=== PATIENT | male | born 1955 | race Caucasian/White ===

== ENCOUNTER 2019-03-15 13:23 | Day surgery (SDC) | payer OTHER, MEDICAID, SELFPAY ==
--- NOTE | 2019-03-15 | PATH_ITS ---
[facility] Accession Number: [id number] . 01 Material submitted: . PART A: cecum - CECUM POLYP PART B: colon - COLON POLYP AT 70CM . 02 Diagnosis: A. Cecum, Polyp: Tubular adenoma. . B. Colon at 70 cm, Polyp: Colonic mucosa with no diagnostic abnormality, consistent with polypoid redundancy. Negative for serrated lesion, dysplasia or malignancy. MRV/03/17/2019 . 02 Electronically signed: . Rajiv Ceballos MD, PhD, Pathologist NPI- [id number] . 01 Gross description: . Part A: CECUM POLYP: Received in formalin are multiple fragment(s) of may, soft tissue measuring 1.4 x 0.5 x 0.2 cm in aggregate submitted entirely in 1 cassette(s) Part B: COLON POLYP AT 70CM: Received in formalin are 2 fragment(s) of may, soft tissue measuring 0.5 x 0.3 x 0.2 cm to 0.3 x 0.3 x 0.1 cm submitted entirely in 1 cassette(s) /CKI /CKI . 02 Pathologist provided ICD-10: D12.0, K63.5 . 02 CPT . 607928, [id number] Specimen Comment: A duplicate report has been generated due to demographic updates. Performed at: 01 [facility] [address], [place], [place] [id number] MD Naveed Ribera MD Phone: [phone] Performed at: 02 [facility] [address] [place], [place] [id number] MD Rafia Jaime MD Phone: [phone]
[2019-03-15 15:20] VITALS: BP 137/79; PULSE 68; RESP 16; TEMP 36.6; O2SAT 99; BMI 27.6
[2019-03-15] MEDS: SODIUM CHLORIDE 0.9% 1,000 ML 200 ML IV (15:30)
--- NOTE | 2019-03-15 16:21 | PM.HP.1 ---
History of Present Illness Date Patient Seen: 03/15/19 Time Patient Seen: 16:00 Chief complaint: [id number] SCREENING COLONOSCOPY Narrative: Patient is gentleman who was confused about the time this check-in was post be here this morning but arrived this afternoon we are able to accommodate him to do a late colonoscopy. He has had polyps removed in the past and it has been 5 years since his last colonoscopy Patient History Social History household members: none Family & Social History Social History: household members none Review of Systems Review of Systems All systems reviewed & are unremarkable except as noted in HPI and below Neurologic Comments: Has migraine headaches at times takes medication as needed to control Exam Vital Signs (past 8 hours): - 03/15/19 15:20 Temperature 97.8 F Pulse Rate 68 Respiratory Rate 16 Blood Pressure 137/79 Pulse Oximetry 99 Oxygen Delivery Method Room Air Narrative Exam Narrative: Pleasant cooperative patient no apparent distress. Lungs are clear to auscultation. No rales or rhonchi. Heart regular rate and rhythm no murmur gallop. Abdomen is soft nontender without mass. No obvious hernias. Patient is alert and oriented x3. Assessment & Plan Assessment & Plan narrative: The patient for a screening colonoscopy. I have discussed the procedure with them. Risks of bleeding, perforation which would necessitate major operation, failure to find remove all lesions, the potential tattoo were all discussed. All questions were answered. They wished to proceed.
--- NOTE | 2019-03-15 16:23 | PM.PREOP ---
Pre-operative Note Interval Note History & Physical reviewed/Exam performed by Physician: Yes Changes to H&P: No ASA Class (for procedural sedation): I
[2019-03-15 17:20] VITALS: BP 103/65; PULSE 65; RESP 14; TEMP 36.9; O2SAT 98
[2019-03-15 17:26] VITALS: BP 107/70; PULSE 76; RESP 12; O2SAT 98
[2019-03-15 17:33] VITALS: BP 115/68; PULSE 66; RESP 12; O2SAT 99
[2019-03-15 17:38] VITALS: BP 117/73; PULSE 63; RESP 16; O2SAT 95
[2019-03-15 17:39] VITALS: BP 112/62; PULSE 60; RESP 13; TEMP 37.4; O2SAT 95
--- NOTE | 2019-03-15 17:48 | P.OP.ENDO_ITS ---
Operative Date/Time/Diagnoses Date of procedure: 03/15/19 Time of procedure: 17:30 Pre-op diagnosis: History of polyps. Last exam 5 years ago. Post-op diagnosis: same (Polyps found on this exam as well.) Procedure & Clinicians Study performed: Colonoscopy with cold biopsy Same procedure as scheduled: Yes Indications: Screening Surgeon: Carlos Griffith Procedure Notes SCOAP/Timeout: Performed Procedure in detail: The patient was placed in the left lateral decubitus position and underwent IV sedation directed by the surgeon consisting of fentanyl and Versed. Digital exam was remarkable for a mildly enlarged prostate . The scope was inserted and advanced through the rectum into the sigmoid, descending, transverse, and ascending colon. No lesions were seen except for sigmoid diverticulosis. Pressure was applied and made our way into the cecum. The cecum was reached identified by the ileocecal valve and the appendiceal opening. There were 3 small polypoid lesions all of which biopsied and removed but placed in the same container. Two were not far from the appendiceal opening. The ileocecal valve was successfully cannulated. The terminal ileum was normal in appearance. The scope was gradually brought out. And additional Polyp was found at 70 cm from the anal verge. The scope ultimately was retroflexed in the rectum. The appearance was normal. The scope was removed and the patient tolerated the procedure well. The prep was adequate to find polyps over 0.5 mm I believe but the fine mucosal detail was lost as the prep was a little less than adequate. Therefore I would recommend that he have this test repeated sooner rather than the usual 5 years. Scope withdrawal time: 12 minutes Sedation minutes: 38 Findings: diverticulosis (Sigmoid) and polyp (Cecum and at 70 cm) Specimen(s): other (Polyps) Complications: none Recommendations: Colonscopy in 3 years (Due to slightly suboptimal prep) and Other recommendation (Two day colonoscopy prep at next exam) Follow up: as needed Disposition: PACU
== END 2019-03-15 18:09 | disposition home or self-care (01) ==
PROVIDERS: Family Provider Family Medicine; PCP Family Medicine; Visit Provider Specialist
PROC: 0DJD8ZZ Inspection of Lower Intestinal Tract, Via Natural or Artificial Opening Endoscopic (ICD-10-PCS; CPT 45378; principal; 2019-03-15 11:45)
DX: Z86.010 Personal history of colon polyps (principal); D12.0 Benign neoplasm of cecum; K63.5 Polyp of colon; K57.30 Diverticulosis of large intestine without perforation or abscess without bleeding
CPT/HCPCS: 45380; 99152; 99153

== ENCOUNTER → 2022-03-03 07:06 | Outpatient (CLI) | payer OTHER, MEDICAID, SELFPAY ==
[2022-03-03 21:45] LABS: COVID19 - ORCAS (NP or Nasal) Negative (Negative)
== END ==
PROVIDERS: Family Provider Family Medicine; PCP Family Medicine; Visit Provider Family Medicine
DX: Z20.822 Contact with and (suspected) exposure to COVID-19 (principal)
CPT/HCPCS: C9803; U0003

== ENCOUNTER 2022-03-04 08:51 | Day surgery (SDC) | payer OTHER, MEDICAID, SELFPAY ==
[2022-03-04] VITALS (8 sets, daily range): BP systolic 118–134; BP diastolic 78–88; PULSE 63–70; RESP 11–18; TEMP 35.7–36.7; O2SAT 93–100; BMI 28.8
[2022-03-04] MEDS: LACTATED RINGERS 1,000 ML 200 ML IV (09:24)
--- NOTE | 2022-03-04 09:30 | PM.HP.1 ---
History of Present Illness History of Present Illness Date Patient Seen: 03/04/22 Time Patient Seen: 09:30 Chief complaint: DX COLONOSCOPY Narrative: The patient presents for colorectal screening he has a personal history of colonic polyps. Last colonoscopy 3 years ago. No personal or family history of colon cancer. On further history denies any recent gastrointestinal symptoms. No nausea, vomiting, abdominal pain, loss of appetite, unexplained weight loss, change in bowel habits, diarrhea, constipation, melena, hematochezia, or bright red blood per rectum. Patient History Medical History History of colon polyps Family & Social History Social History: household members none Tobacco & Substance use: Smoking Status Former smoker alcohol intake current Substance Use Type does not use Meds Home Medications and Allergies Home Medications Medication Instructions Recorded Confirmed Type albuterol sulfate 90 mcg/actuation 2 puff inhalation Q4-6H PRN 01/28/21 03/04/22 History aerosol inhaler Adequate Ventilation aspirin 81 mg tablet,delayed 81 mg PO DAILY 01/28/21 03/04/22 History release (Adult Low Dose Aspirin) cyclobenzaprine 10 mg tablet 10 mg PO TID 01/28/21 03/04/22 History fluticasone propionate 50 1 spray intranasal DAILY 01/28/21 01/29/21 History mcg/actuation nasal spray,suspension sumatriptan succinate 100 mg tablet See Rx Instructions PO .COMPLEX 01/28/21 03/04/22 History Allergies Allergy/AdvReac Type Severity Reaction Status Date / Time No Known Drug Allergies Allergy Verified 03/04/22 09:13 Exam Vital Signs (past 8 hours): - 03/04/22 09:09 Temperature 96.3 F L Pulse Rate 69 Respiratory Rate 18 Blood Pressure 134/88 Pulse Oximetry 100 Oxygen Delivery Method Room Air Oxygen Delivery Method Room Air Narrative Exam Narrative: General adult male alert oriented no acute distress Chest nonlabored respirations Abdomen soft nontender nondistended Assessment & Plan Assessment & Plan narrative: The patient requires colorectal screening and colonoscopy is recommended. Technical details were discussed. Risks, benefits, alternatives explained. Risks including but not limited to myocardial infarction, aspiration, bleeding, pain, missed lesion, incomplete examination, need for further radiographic studies, colonic perforation, and need for major abdominal surgery were discussed. All questions were answered to their satisfaction, and they are in agreement with this plan. Time Spent With Patient Critical Care time: I spent a total of [] minutes of critical care time on this patient's care today; this time is exclusive of procedural time.
--- NOTE | 2022-03-04 09:58 | PM.OP.COLON ---
Operative Date/Time/Diagnoses Date of procedure: 03/04/22 Time of procedure: 09:58 Pre-op diagnosis: Personal history of colonic polyps Post-op diagnosis: same Procedure & Clinicians Study performed: Colonoscopy Same procedure as scheduled: Yes Indications: Personal history of colonic polyps Surgeon: Danny Fernandez Procedure Notes Procedure in detail: Medications: Conscious sedation using 5mg IV midazolam and 150mcg IV of fentanyl The history and physical was performed/updated and the patient is ASA class is 2. The procedure was discussed in detail with the patient. Potential risks complications including infection, bleeding, missed diagnosis, perforation, need for surgery, and were explained. Their questions were answered and informed consent was obtained. Patient was brought to the procedure room and placed standard monitoring equipment. The patient's vital signs were monitored continuously throughout the entire procedure. Prior to starting time-out was performed. The patient was placed in the left lateral recumbent position. Procedural sedation was administered. Examination began with a thorough inspection of the perianal area there was no evidence of fissures, fistulae, external hemorrhoids or cutaneous malignancy. The colonoscopy scope was then placed into the anal canal and was advanced to the cecum, which was identified by the ileocecal valve, the appendiceal orifice and the confluence of the taenia. The scope was then slowly withdrawn examining colon thoroughly in all directions, irrigating it of any residual stool. FINDINGS 1. No masses or polyps 2. Internal hemorrhoid 3. Diverticulosis-mild The patient tolerated the procedure well. They will be discharged once criteria are met. The prep was of good/excellent quality. The withdrawl time was 6 minutes. The sedation time was 20 minutes. Specimen(s): none sent Complications: none Impression: Normal colonoscopy Post-procedure Recommendations: Colonoscopy in 10 years and High fiber diet Disposition: same day surgery
[2022-03-04] MEDS: MIDAZOLAM 5 MG/5 ML VIAL IV (09:59)
[2022-03-04] MEDS: fentaNYL 250 MCG/5 ML INJ IV (09:59)
== END 2022-03-04 11:06 | disposition home or self-care (01) ==
PROVIDERS: Family Provider Family Medicine; PCP Family Medicine; Referring Provider Surgery; Visit Provider Surgery
PROC: 0DJD8ZZ Inspection of Lower Intestinal Tract, Via Natural or Artificial Opening Endoscopic (ICD-10-PCS; CPT 45378; principal; 2022-03-04 10:00)
DX: Z12.11 Encounter for screening for malignant neoplasm of colon (principal); Z86.010 Personal history of colon polyps; K64.8 Other hemorrhoids; K57.30 Diverticulosis of large intestine without perforation or abscess without bleeding
CPT/HCPCS: 45378; 99152; J2250; J3010